=== PATIENT | female | born 1965 | race Caucasian/White ===

== ENCOUNTER 2019-06-08 09:19 | Day surgery (SDC) | payer OTHER | END 2019-06-08 09:50 | disposition home or self-care (01) | LOC: MDS 09:19 → MMU 09:27 → MDS 09:50 | PROVIDERS: ATTEND Internal Medicine Gastroenterology | DX: R19.7 Diarrhea, unspecified (principal); R11.11 Vomiting without nausea; Z53.8 Procedure and treatment not carried out for other reasons ==